=== PATIENT | male | born 1980 | race Hispanic/Latino ===

== ENCOUNTER 2021-11-23 16:42 | Emergency (ER) | payer OTHER ==
[~2021-11-23] VITALS: Ht 177.8 cm; Wt 93.0 kg
[2021-11-23] MEDS ORDERED: BACTRIM DS TAB1 EACH PO (20:12)
== END 2021-11-23 21:24 | disposition home or self-care (01) ==
LOC: ED 16:42
DX: L03.032 Cellulitis of left toe (principal)
CPT/HCPCS: 83605; 85025; 99283